=== PATIENT | male | born 1970 | race Two or more races ===

== ENCOUNTER 2024-07-07 13:30 | Outpatient (RCR) | payer MEDICAID, SELFPAY ==
--- NOTE | 2024-07-02 12:40 | PTNOTE_ITS ---
PT OP Initial Eval Patient Information Outpatient Physical Therapy Treatment Date: 07/02/24 Visit Reasons: Left/Right elbow Humerus/fracture of RT hip Medical Diagnosis: [id number] Treatment Dx #1: Right Hip Pain Treatment Dx #2: Right Hip Weakness Start of Care: 07/02/24 Date of Onset: December 2023 Smoking Status Smoking Status: Current every day smoker (yes) Cessation Counseling Provided: JOLIE was advised that quitting smoking is the single most important factor to protect the health of themselves and their family. Discussed the benefits of quitting smoking with patient. Encouraged patient to quit smoking and provided Cessation assistance materials and resources. Tobacco Use: Cigarette Years smoked: 20 Are you interested in quitting?: No Would you like additional Smoking Cessation Counseling?: No Initial Assessment Subjective: Pt is a 53 y/o male reports of right hip pain (5/10) since his surgery due to fracture from falling of a palm tree while cutting the tree. Pt's hip surgery was done in [place]. Pt has limitation with prolonged standing, walking, chores, balance, self care, and performing recreational activities. Objective: Right Hip AROM Flexion: 95 deg Abduction: 45 deg IR and ER: WFL Extension: 15 deg Right Hip MMTs: grossly 3+/5 Active SLR: 90 deg Gait Observation: trendelenburg gait SLS: 2 sec Assessment: Pt demonstrate right hip mobility and strength deficits s/p surgery leading to difficulty with ADLs. Pt will benefit from physical therapy to increase mobility, strength, and stability. Short Term and Supervisor Rose Grading Goals 1) Increase right hip AROM WFL in 8 wks to be able to perform recreational activities 2) Increase right hip MMTs grossly to 4/5 in 8 wks to be able to walk with decrease trendelenburg gait 3) Decrease hip pain to 2/10 in 8 wks to be able to walk more than 30 mins 4) Increase SLS to 10 sec in 8 wks to be able to perform self care activities 5) Indep with HEP Treatment Plan 1) Manual Therapy 2) Therapeutic Activities 3) Therapeutic Exercises 4) Modalities (ice, heat) 5) Balance Training 6) Gait Training Frequency and Duration: 2 x wk for 8 wks Certification Dates: 07/02/24 to 09/30/24 Procedure Charges OP PT Eval Mod Complex 30 minutes: Yes
--- NOTE | 2024-07-05 15:42 | PT.ODAYNRPT ---
PT Outpatient Daily Note OP Daily Note Outpatient Physical Therapy Treatment Date: 07/05/24 Visit Reasons: Left/Right elbow Humerus/fracture of RT hip Subjective: Pt notices he limps and notices R hip is weak. Objective: Please see flow sheet for ther ex list. Assessment: Pt tolerated interventions with minimal discomfort. Plan: Assess response to treatment, give pt HEP for strengthening. Length of Time (minutes) of Treatment: 30 Minutes Procedure Charges Therapeutic Exercise 30 minutes: Yes
--- NOTE | 2024-07-07 16:18 | PT.ODAYNRPT ---
PT Outpatient Daily Note OP Daily Note Outpatient Physical Therapy Treatment Date: 07/07/24 Visit Reasons: Left/Right elbow Humerus/fracture of RT hip Subjective: Pt's hip feels okay slight sore after last session Objective: Please see flow chart for list of ther ex performed Assessment: progress patient to more closed chain exercises with good tolerance Plan: Continue with PT Length of Time (minutes) of Treatment: 30 Minutes Procedure Charges Therapeutic Exercise 30 minutes: Yes
== END 2024-07-09 23:59 | disposition home or self-care (01) ==
LOC: CPTX 13:30
PROVIDERS: PCP Family Medicine; Referring Provider Family Medicine; Visit Provider Family Medicine
DX: M25.551 Pain in right hip (principal); R53.1 Weakness; R26.2 Difficulty in walking, not elsewhere classified; R26.89 Other abnormalities of gait and mobility; S72.21XD Displaced subtrochanteric fracture of right femur, subsequent encounter for closed fracture with routine healing; W14.XXXD Fall from tree, subsequent encounter; Z71.6 Tobacco abuse counseling; F17.210 Nicotine dependence, cigarettes, uncomplicated
CPT/HCPCS: 97110; 97162

== ENCOUNTER 2024-07-14 08:00 | Outpatient (RCR) | payer MEDICAID, SELFPAY ==
--- NOTE | 2024-07-12 14:41 | PT.ODAYNRPT ---
PT Outpatient Daily Note OP Daily Note Outpatient Physical Therapy Treatment Date: 07/12/24 Visit Reasons: BILATERAL ELBOW PAIN/FX RIGHT HIP Subjective: Pt's hip feels off and short. Pt mentioned he's unable to see surgeon at the moment due to insurance issue. Objective: Please see flow chart for list of ther ex performed Assessment: educated patient regarding gait and hip pain which relates to nature of procedure and glute weakness. It was explained to patient despite his glute strengthen in the future his gait may still be abnormal due to surgery and fracture. Pt gave verbal understanding Plan: Continue with PT Length of Time (minutes) of Treatment: 30 Minutes Procedure Charges Therapeutic Exercise 30 minutes: Yes
--- NOTE | 2024-07-14 09:01 | PT.ODAYNRPT ---
PT Outpatient Daily Note OP Daily Note Outpatient Physical Therapy Treatment Date: 07/14/24 Visit Reasons: BILATERAL ELBOW PAIN/FX RIGHT HIP Subjective: Pt reports hip is doing ok, no new complaints. Objective: Please see flow sheet for ther ex list. Assessment: Pt demonstrates trunk lateral flexion during step up exercise to compensate for poor quad and glute recruitment. Decrease step height resulting in decrease trunk lateral flexion. Plan: Continue with POC. Length of Time (minutes) of Treatment: 30 Minutes Procedure Charges Therapeutic Exercise 30 minutes: Yes
--- NOTE | 2024-09-02 11:55 | PT.ODS1RPT ---
PT OP Progress/Discharge Note Date of Service: 09/02/24 Progress Note/DC Note Progress Note/Discharge Note: DC Note Patient Information Visit Reasons: BILATERAL ELBOW PAIN/FX RIGHT HIP Service Discharge Date: 09/02/24 Status Assessment: Pt has been seen for 5 visits (eval + 4 visits). Pt last treated on 07/14/24. Pt has not return to therapy and will be d/c from care due plan of care 08/30/24. Pt did not meet set goals in therapy; thank you for your referrals.
== END 2024-08-06 23:59 | disposition home or self-care (01) ==
LOC: CPTX 08:00
PROVIDERS: PCP Family Medicine; Referring Provider Family Medicine; Visit Provider Family Medicine
DX: M25.551 Pain in right hip (principal); R53.1 Weakness; R26.2 Difficulty in walking, not elsewhere classified; R26.89 Other abnormalities of gait and mobility; S72.21XD Displaced subtrochanteric fracture of right femur, subsequent encounter for closed fracture with routine healing; W14.XXXD Fall from tree, subsequent encounter
CPT/HCPCS: 97110

== ENCOUNTER → 2024-12-31 | Outpatient (CLI) | payer MEDICAID, SELFPAY ==
--- NOTE | 2024-12-31 10:03 | XR_ITS ---
Examination: CT right hip, without contrast. CT pelvis without intravenous contrast 2-D sagittal reconstructions. 2-D coronal reconstructions. 3-D reconstructions. Date and time of exam:December 31, 2024 1035 hours INDICATIONS: History right hip fracture with difficulty walking several months CTDI: vol (mGy):5 DLP: (mGycm):214 Technique: Multiple 1.25 mm axial sections of the pelvis right hip have been obtained. 2-D sagittal and coronal reconstructions have been obtained. 3-D reconstructions have been obtained. Low dose protocols were performed. One or more of the following dose reduction techniques were used; automated exposure control, adjustment of the mA and/or KV according to patient size, use of iterative reconstruction technique. 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
== END | disposition home or self-care (01) ==
PROVIDERS: PCP Internal Medicine; Referring Provider Internal Medicine; Visit Provider Internal Medicine
DX: M86.8X8 Other osteomyelitis, other site (principal); S72.144A Nondisplaced intertrochanteric fracture of right femur, initial encounter for closed fracture; X58.XXXA Exposure to other specified factors, initial encounter
CPT/HCPCS: 73700